=== PATIENT | male | born 1955 | race Caucasian/White ===

== ENCOUNTER 2020-04-20 19:05 | Observation (INO) | payer OTHER, SELFPAY ==
--- OUTSIDE RECORDS SUMMARY | 2020-04-20 19:08 | XMS REPORT | Clinical Summary ---
:1955 Author Organization [facility] Address [address] [place] [address] Care Team Providers Name Role Phone Deandre Phelan DO Primary Care Provider Unavailable Allergies Active Allergy Reactions Severity Noted Date Comments Allopurinol Analogues Anaphylaxis High 02/06/2015 Morphine Other (See Comments) 02/06/2015 Brain f eels on fire, out of it Medications Medication Sig Dispensed Refills Start End Date Status Date insulin aspart Inject 0 Activ e protamine-insulin subcutaneously 2 aspart (NOVOLOG (two) times daily MIX 70/30) 100 with breakfast and unit/mL (70-30) dinner 30u in AM Soln injection with breakfast and 25u in evening with dinner . acetaminophen Take 500 mg by 0 10/31/20 D iscontinued (TYLENOL) 500 MG mouth every 6 (six) 19 tablet hours as needed for Pain. predniSONE Take 4 tablets (80 80 tablet 0 11/21/19 (DELTASONE) 20 MG mg total) by mouth 9 20 tablet daily for 20 days Taper per your lead caster helper. Active Problems Problem Noted Date Idiopathic thrombocytopenic purpura (ITP) 10/31/2019 Acute idiopathic gout of right elbow 06/04/2016 Gout 06/04/2016 Cellulitis of elbow 06/03/2016 Chronic ITP (idiopathic thrombocytopenia) 06/03/2016 CKD (chronic kidney disease) stage 3, GFR 30-59 ml/min 06/03/2016 Encounters Date Type Specialty Care Team Description 10/31/2019 - Emergency Oncology Mik Mckoy MD Idiopathic thrombocytopenic purpura (ITP ) (HCC) (Primary Dx); 11/01/2019 Baldemar, CKD (chronic kidney disease) stage 3, GFR 30-59 ml/min ([facility]); MD Felix Hypertension, unspecified type Brandon Toro MD after 04/20/2019 Social History Tobacco Use Types Packs/Day Years Used Date Former Smoker 2 10 Smokeless Tobacco: Former User Q uit: 05/12/2014 Comments: quit 1980 Alcohol Use Drinks/Week oz/Week Comments No Sex Assigned at Date Recorded Not on file Job Start Date Occupation Industry Not on file Not on file Not on file Travel History Travel Start Travel End No recent travel history available. Last Filed Vital Signs Vital Sign Reading Time Taken Blood Pressure 101/67 11/01/2019 8:22 AM RECEIVER Pulse 61 11/01/2019 8:22 AM RECEIVER Temperature 36.3 C (97.3 F) 11/01/2019 5:00 AM RECEIVER Respiratory Rate 18 11/01/2019 8:22 AM RECEIVER Oxygen Saturation 95% 11/01/2019 8:22 AM RECEIVER Inhaled Oxygen Concentration - - Weight 130.3 kg (287 lb 3.2 oz) 10/31/2019 2:5 1 PM RECEIVER Height 182.9 cm (6') 10/31/2019 2:51 PM RECEIVER Body Mass Index 38.95 10/31/2019 2:51 PM RECEIVER Plan of Treatment Not on file Implants Implanted Type Area Medical Claims Manager Device Shelf Model / Identifier Expiration Serial / Date Lot Cement,Bone Simplex Hv Full Dose (Each) - [id number] Cement/Jc Left: Knee Anna 06/15/2015 [id number] / Implanted: Qty: 1 on 02/21/2015 by Cornell Loving MD ler/[employer] / [id number] Cement,Bone Simplex Hv Full Dose (Each) - [id number] Cement/Jc Right: Knee Anna 05/15/2017 [id number] / Implanted: Qty: 2 on 10/18/2015 by Cornell Loving MD ler/[employer] / [id number] Fem Comp,Triathlon Cr Cemented #6 Left - [id number] Joints Left: Karen roblero Anna 09/15/2019 [id number] / Implanted: Qty: 1 on 02/21/2015 by Cornell Loving MD Orthopaedics / [id number] Triathlon Tritanium Asymmetric Patella Joints Left: ANNA:STR YKER 07/15/2019 5552-[id number] / Implanted: Qty: 1 on 02/21/2015 by Cornell Loving MD [employer] / [id number] Triathlon Tritanium Tibial Component Joints Left: Knee Anna 04/15/2019 [id number]-[id number] / Implanted: Qty: 1 on 02/21/2015 by Cornell Loving MD Orthopaedics / [id number] Tibial Insert,Triathlon Cr X3 #6 9mm - [id number] Joints Left: Kne e Anna 12/16/2019 [id number] / Implanted: Qty: 1 on 02/21/2015 by Cornell Loving MD Orthopaedics / [id number] Fem Comp,Triathlon Cr Cemented #6 Right - [id number] Joints Right: Knee Anna 05/16/2020 [id number] / Implanted: Qty: 1 on 10/18/2015 by Cornell Loving MD Orthopaedics / [id number] Tibial Insert,Triathlon Cr X3 #6 9mm - [id number] Joints Right: Kn ee Anna 04/16/2020 [id number]-[id number] / Implanted: Qty: 1 on 10/18/2015 by Cornell Loving MD Orthopaedics / [id number] Tibial Component Right: Knee Anna 04/16/2020 [id number] / Implanted: Qty: 1 on 10/18/2015 by Cornell Loving MD Orthopaedics / [id number] Asymmetric Patella Right: Knee Sullivan 0 5552-[id number] / Implanted: Qty: 1 on 10/18/2015 by Cornell Loving MD Orthopaedics / [id number] Procedures Procedure Name Priority Date/Time Associated Comments Diagnosis TRANSFUSION SERVICE 11/01/2019 6:01 REPORT - SCAN PM RECEIVER POCT-GLUCOSE METER Routine 11/01/2019 10:04 Resul ts for this AM RECEIVER procedure are i n the results section. CBC W/PLT COUNT & Routine 11/01/2019 5:15 Result s for this AUTO DIFFERENTIAL AM RECEIVER procedure are in the results section. BASIC METABOLIC PANEL Routine 11/01/2019 5:15 Re sults for this (7) AM RECEIVER procedure are i n the results section. CBC W/PLT COUNT & Routine 11/01/2019 5:15 Result s for this AUTO DIFFERENTIAL AM RECEIVER procedure are in the results section. POCT-GLUCOSE METER Routine 10/31/2019 9:59 Resul ts for this PM RECEIVER procedure are i n the results section. POCT-GLUCOSE METER Routine 10/31/2019 5:02 Resul ts for this PM RECEIVER procedure are i n the results section. TANIA TITER AND PATTERN Routine 10/31/2019 3:47 Re sults for this PM RECEIVER procedure are i n the results section. HEPATITIS PANEL, Routine 10/31/2019 3:47 Results for this ACUTE PM RECEIVER procedure are i n the results section. HIV-1 ANTIGEN WITH Routine 10/31/2019 3:47 Resul ts for this HIV-1/2 ANTIBODY PM RECEIVER procedure a re in the results section. ANTI-NUCLEAR ANTIBODY Routine 10/31/2019 3:47 Re sults for this (TANIA) PM RECEIVER procedure are i n the results section. VITAMIN B12 AND Routine 10/31/2019 3:47 Results for this FOLATE PM RECEIVER procedure are i n the results section. CBC W/PLT COUNT & STAT 10/31/2019 12:21 Result s for this AUTO DIFFERENTIAL PM RECEIVER procedure are in the results section. TYPE AND SCREEN, STAT 10/31/2019 12:21 Results for this AUTOMATED PM RECEIVER procedure are i n the results section. PT/APTT STAT 10/31/2019 12:21 Results for this PM RECEIVER procedure are i n the results section. BASIC METABOLIC PANEL STAT 10/31/2019 12:21 Re sults for this (7) PM RECEIVER procedure are i n the results section. HEPATIC FUNCTION STAT 10/31/2019 12:21 Results for this PANEL PM RECEIVER procedure are i n the results section. CBC W/PLT COUNT & STAT 10/31/2019 12:21 Result s for this AUTO DIFFERENTIAL PM RECEIVER procedure are in the results section. after 04/20/2019 Results TRANSFUSION SERVICE REPORT - SCAN (11/01/2019 6:01 PM RECEIVER) Narrative Performed At This result has an attachment that is no t available. POC-Glucose meter (11/01/2019 10:04 AM RECEIVER)Only the most recent of3 results within the time period is included. POC-Glucose Meter 192 (H)Comment: : TESTED 70 - 110 mg/dL [facility] Joey CORONAJhony [facility] [address] [facility], [id number]: Care Mgr/Equipment Scheduler ID = [id number] for EDGAR SCHRADER Specimen Blood Performing Organization Address City/State/Zipcode Phone Number [facility] [address] [place], [place] [phone] CENTER CBC with platelet count + automated diff (11/01/2019 5:15 AM RECEIVER)Only the most recent of2 resultswithin the time period is included. WBC 9.4 3.5 - 10.5 K/L [facility] RBC 5.05 4.63 - 6.08 M/L [facility] Hemoglobin 13.6 (L) 13.7 - 17.5 GM/DL [facility] Hematocrit 42.8 40.1 - 51.0 % [facility] MCV 84.8 79.0 - 92.[address] [facility] MCH 26.9 25.7 - 32.[address] [facility] MCHC 31.8 (L) 32.3 - 36.5 GM/DL [facility] RDW 15.4 (H) 11.6 - 14.4 % [facility] Platelets 51 (L)Comment: 150 - 450 K/CU MM [facility] Discordant PLT result [facility] compared to previous result; clinical correlation required. MPV 12.4 9.4 - 12.[address] [facility] nRBC 0 0 - 0 /[address] [facility] % Neutros 76 % [facility] % Lymphs 21 % [facility] % Monos 2 % [facility] % Eos 0 % [facility] % Baso 0 % [facility] # Neutros 7.18 (H) 1.78 - 5.38 K/L [facility] # Lymphs 1.93 1.32 - 3.57 K/L [facility] # Monos 0.16 (L) 0.30 - 0.82 K/L [facility] # Eos 0.00 (L) 0.04 - 0.54 K/L [facility] # Baso 0.02 0.01 - 0.08 K/L [facility] Immature 1 0 - 1 % [facility] Granulocytes-Relative [facility] Specimen Blood Performing Organization Address City/State/Zipcode Phone Number [facility] [address] [place] [address] CENTER Basic Metabolic Panel (11/01/2019 5:15 AM RECEIVER)Only the most recent of2 results within the time period is included. Sodium 135 (L) 136 - 145 meq/L [facility] Potassium 4.4 3.5 - 5.1 meq/L [facility] Chloride 106 98 - 107 meq/L [facility] CO2 21 (L) 22 - 29 meq/L [facility] BUN 33 (H) 7 - 21 mg/dL [facility] Creatinine 1.66 (H) 0.57 - 1.25 mg/dL [facility] Glucose 164 (H) 70 - 105 mg/dL [facility] Calcium 8.8 8.4 - 10.2 mg/dL [facility] EGFR 42Comment: ESTIMATED GFR IS mL/min/1.73 sq m [facility] NOT ACCURATE CREATININE [facility] CLEARANCE IN PREDICTING GLOMERULAR FILTRATION RATE. ESTIMATED GFR IS NOT APPLICABLE FOR DIALYSIS PATIENTS. Specimen Blood Performing Organization Address City/[facility]/Zipcode Phone Number [address] [address] [place] Vitamin B12 and Folate (10/31/2019 3:47 PM RECEIVER) Vitamin B12 573 213 - 816 pg/mL [facility] Folate 15.3 >=7.0 ng/mL [facility] Specimen Blood Performing Organization Address City/[facility]/Zipcode Phone Number [address] [address] [place] HIV-1 Antigen with HIV-1/2 Antibody (10/31/2019 3:47 PM RECEIVER) HIV-1 Antigen with HIV 1&2 Nonreactive Nonreactive [facility] Antibody [facility] Specimen Blood Performing Organization Address [facility] Cent[facility] Phone Number [address] [address] [place] TANIA Titer & Pattern (10/31/2019 3:47 PM RECEIVER) TANIA Titer >=1:2560 [facility] TANIA Pattern Nucleolar [facility] Specimen Blood Performing Organization Address [facility] Cent[facility] Phone Number [address] [address] [place] Hepatitis panel, acute (10/31/2019 3:47 PM RECEIVER) Hep A IgM Nonreactive Nonreactive [facility] Hep B C IgM Nonreactive Nonreactive [facility] Hepatitis C Ab Nonreactive Nonreactive [facility] HBsAg Screen Nonreactive Nonreactive [facility] Specimen Blood Performing Organization Address City/[facility]/Zipcode Phone Number [address] [phone] CENTER Anti-Nuclear Antibody (TANIA) (10/31/2019 3:47 PM RECEIVER) TANIA Positive (A) Negative [facility] Specimen Blood Narrative Performed At Test performed by IFA method. [facility] Performing Organization Address City/[facility] Centercode Phone Number [address] [address] CENTER Type and screen, automated ([facility] and [facility] only) (10/31/2019 12:21 PM RECEIVER) ABO/RH AUTOMATED (BEAKER) O POSITIVE [facility] [place] Ab Scrn NEGATIVE [facility] Specimen Blood Performing Organization Address [facility] Phone Number [address] [address] PT/aPTT (10/31/2019 12:21 PM RECEIVER) Protime 13.0 11.9 - 14.2 seconds [facility] INR 1.0 <=5.9 [facility] PTT 28.8 22.5 - 36.0 seconds [facility] Specimen Blood Narrative Performed At Effective 04/13/2019: PT Reference Range [facility] Change New: 11.9-14.2Previous: 11.7-14.7 RECOMMENDED COUMADIN/WARFARIN INR THERAPY RANGES STANDARD DOSE: 2.0-3.0Includes: PROPHYLAXIS for venous thrombosis, systemic embolization; TREATMENT for venous thrombosis and/or pulmonary embolus. HIGH RISK: Target INR is 2.5-3.5 for patients wiht mechanical heart valves. Performing Organization Address City/[facility] Centercode Phone Number [address] [address] CENTER Hepatic function panel (10/31/2019 12:21 PM RECEIVER) Protein, Total 7.5 6.0 - 8.3 gm/dL [facility] Albumin 3.9 3.5 - 5.0 g/dL [facility] Total Bilirubin 0.5 0.2 - 1.2 mg/dL [facility] Bilirubin, Direct 0.2 0.1 - 0.5 mg/dL [facility] Alkaline Phosphatase 115 40 - 150 U/L [facility] Jhony [facility] AST 18 5 - 34 U/L [facility] ALT 13 6 - 55 U/L [facility] CJJhony [facility] Specimen Blood Performing Organization Address City/State/Zipcode Phone Number [facility] [address] [place] [address] CENTER after 04/20/2019 Insurance Payer Benefit Plan / Group Subscriber ID Type Phone A ddress MEDICARE MEDICARE A B xxxxxxxxxxx Medicare [facility] MRKT[facility]ACE xxxxxxxxxxxx HMO/POS CHOICE EXCHANGE MCR GENERIC MEDICARE xxxxxxxxxx Medigap SUPPLEMENT/INDIVIDUA SUPPLEMENT L Advance Directives For more information, please contact:[facility] CenterCassie PenaKindred Hospital Seattle - North GateBtaomd[address] [place], [place] [phone] Code Status Date Activated Date Inactivated Comments Full Code 10/31/2019 2:27 PM 11/01/2019 12:54 PM This code status was determined by: Patient Full Code 10/18/2015 6:04 AM 10/18/2015 3:33 PM This code status was determined by: Patient Full Code 06/05/2015 7:21 AM 06/05/2015 6:25 PM This code status was determined by: Patient Full Code 02/21/2015 8:28 AM 02/21/2015 3:23 PM This code status was determined by: Patient
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
[2020-04-20 22:26] LABS: Protime INR 0.94
[2020-04-20 22:29] LABS: Absolute Lymphocytes (CBC) 2.5 K/uL (0.7-4.9); Basophils % 0.8 % (0-1.3); Hematocrit 47.9 % (39.6-49.0); Lymphocytes % 21.4 % (15.3-44.8); RBC Red Blood Cell Count 5.34 M/uL (4.33-5.43)
[2020-04-20 22:32] LABS: Potassium 4.5 mmol/L (3.5-5.1)
[2020-04-20 22:54] LABS: Blood Morphology Comment NOT SEEN (NOT SEEN); Platelet Estimate ADEQ
--- NOTE | 2020-04-21 00:15 | ER ---
Nurse's Notes [facility] Name: Jose Palacios Age: 64 yrs Sex: Male : 1955 Arrival Date: 04/20/2020 Time: 19:08 Bed 15 Private MD: Diagnosis: Acute embolism and thrombosis of unspecified deep veins of left lower extremity Presentation: 04/20 19:12 Chief complaint: Patient states: Left leg pain and swelling for 4 days. Sent for 1 ultrasound to r/o DVT. Coronavirus screen: Proceed with normal triage. Patient denies a cough. Patient denies shortness of breath or difficulty breathing. Patient denies measured and/or subjective temperature greater than 100.4F prior to today's visit. Patient denies travel on a cruise ship or to a country the [facility] currently lists as an affected area. Patient denies contact with known and/or suspected case of COVID-19. Ebola Screen: Patient denies travel to an Ebola-affected area in the 21 days before illness onset. Initial Sepsis Screen: Does the patient meet any 2 criteria? No. Patient's initial sepsis screen is negative. Risk Assessment: Do you want to hurt yourself or someone else? Patient reports no desire to harm self or others. Onset of symptoms was April 16, 2020. 19:12 Method Of Arrival: Ambulatory [facility] 19:12 Acuity: LITO 3 1 04/21 02:38 Initial Sepsis Screen: Does the patient have a suspected source of infection?. vc Historical: - Allergies: 04/20 19:16 Allopurinol; ll1 19:16 Morphine; ll1 19:16 formaldehyde; ll1 - PMHx: 19:16 Gout; ITP; Decreased Kidney Function; exama; ll1 - PSHx: 19:16 Tonsillectomy; Appendectomy; Hernia repair; Knee surgery; ll1 - Immunization history:: Flu vaccine is not up to date. - Social history:: Patient/guardian denies using alcohol, street drugs, tobacco products. Screenin:30 Abuse screen: Denies threats or abuse. Nutritional screening: No deficits noted. jb4 Tuberculosis screening: No symptoms or risk factors identified. Fall Risk None identified. Assessment: 19:30 General: Appears in no apparent distress. comfortable, Behavior is calm, cooperative, jb4 appropriate for age. Pain: Complains of pain in left calf Pain does not radiate. Pain currently is 0 out of 10 on a pain scale. at worst was 8 out of 10 on a pain scale. Quality of pain is described as burning, crampy, Pain began 4 days ago Is intermittent, Alleviated by rest, Aggravated by increased activity. Neuro: Level of Consciousness is awake, alert, obeys commands, Oriented to person, place, time, situation. Cardiovascular: Patient's skin is warm and dry. Respiratory: Airway is patent Respiratory effort is even, unlabored, Respiratory pattern is regular, symmetrical. GI: No signs and/or symptoms were reported involving the gastrointestinal system. : No signs and/or symptoms were reported regarding the genitourinary system. EENT: No signs and/or symptoms were reported regarding the EENT system. Derm: Skin is intact, Skin is pink, warm \T\ dry. Left lower extremity appears to be darker than the right below the knee. Musculoskeletal: Circulation, motion, and sensation intact. Range of motion: intact in all extremities, Swelling present in lateral aspect of left calf, left lateral ankle and lateral aspect of left foot. 20:30 Reassessment: Patient appears in no apparent distress at this time. Patient and/or jb4 family updated on plan of care and expected duration. Pain level reassessed. Patient is alert, oriented x 3, equal unlabored respirations, skin warm/dry/pink. 21:30 Reassessment: Patient appears in no apparent distress at this time. Patient and/or jb4 family updated on plan of care and expected duration. Pain level reassessed. Patient is alert, oriented x 3, equal unlabored respirations, skin warm/dry/pink. 22:30 Reassessment: Patient appears in no apparent distress at this time. Patient and/or jb4 family updated on plan of care and expected duration. Pain level reassessed. Patient is alert, oriented x 3, equal unlabored respirations, skin warm/dry/pink. 22:50 Reassessment: Pt's heart rate increased 156. Provider notified EKG performed. unable to jb4 capture cardiac event. Pt's heart rate returned to 76. 23:30 Reassessment: Patient appears in no apparent distress at this time. Patient and/or jb4 family updated on plan of care and expected duration. Pain level reassessed. Patient is alert, oriented x 3, equal unlabored respirations, skin warm/dry/pink. 04/21 01:05 Reassessment: Patient appears in no apparent distress at this time. Patient and/or jb4 family updated on plan of care and expected duration. Pain level reassessed. Patient is alert, oriented x 3, equal unlabored respirations, skin warm/dry/pink. 02:00 Reassessment: Patient appears in no apparent distress at this time. Patient and/or vc family updated on plan of care and expected duration. Pain level reassessed. 02:41 Reassessment: Report given to SANDOVAL Nava No complaints or needs at this time. vc Vital Signs: 04/20 19:12 BP 142 / 104; Pulse 84; Resp 19; Temp 98.4; Pulse Ox 96% ; Weight 131.54 kg; Height 6 ll1 ft. (182.88 cm); Pain 5/10; 20:15 BP 144 / 94; Pulse 78; Resp 16; Pulse Ox 96% on R/A; jb4 21:30 BP 135 / 73; Pulse 70; Resp 16; Pulse Ox 97% on R/A; jb4 22:40 BP 146 / 73; Pulse 89; Resp 16; Pulse Ox 100% on R/A; jb4 23:30 BP 130 / 83; Pulse 68; Resp 16; Pulse Ox 95% on R/A; jb4 04/21 01:00 BP 143 / 87; Pulse 74; Resp 19; Pulse Ox 97% on R/A; jb4 02:00 BP 136 / 86; Pulse 68; Resp 22; Pulse Ox 98% on R/A; vc 04/20 19:12 Body Mass Index 39.33 (131.54 kg, 182.88 cm) ll1 ED Course: 04/20 19:08 Patient arrived in ED. cl3 19:15 Triage completed. ll1 19:16 Arm band placed on. ll1 19:19 Davian Cobian, RN is Primary Nurse. jb4 19:30 Patient has correct armband on for positive identification. Bed in low position. Call jb4 light in reach. Side rails up X 1. Pulse ox on. NIBP on. 19:55 Marissa Diaz [facility]NP-C [facility]. kb 19:55 Fab Martino MD is Attending Physician. kb 22:14 Inserted saline lock: 20 gauge in right antecubital area, using aseptic technique. oe Blood collected. 22:47 US Extremity Venous Unilateral Ltd In Process Unspecified. EDMS 04/21 00:15 Kim Omer MD is Hospitalizing Provider. kb 02:36 No provider procedures requiring assistance completed. Patient admitted, IV remains in vc place. Administered Medications: 01:00 Drug: Eliquis 10 mg Route: PO; jb4 02:39 Follow up: Response: No adverse reaction vc Outcome: 00:15 Decision to Hospitalize by Provider. kb 02:36 Admitted to Med/surg accompanied by tech, room 204, with chart. vc 02:36 Condition: good 02:36 Instructed on the need for admit. 02:58 Patient left the ED. vc Signatures: Dispatcher [employer] EDKY Marissa Diaz, INSIDE SALES SUPERVISOR-C INSIDE SALES SUPERVISOR-Ckb Davian Cobian, RN RN jb4 Gwyn Cesar Charde cl3 Layla Souza RN RN Lisa Puentes RN RN ll1
--- NOTE | 2020-04-21 00:15 | EDPHYS ---
Physician Documentation [facility] Name: Jose Palacios Age: 64 yrs Sex: Male : 1955 Arrival Date: 04/20/2020 Time: 19:08 Bed 15 Private MD: ED Physician Fab Martino HPI: 04/21 00:15 This 64 yrs old Male presents to ER via Ambulatory with complaints of kb Possible Blood Clot. 00:15 The patient presents with pain, that is acute, swelling, tenderness. The complaints kb affect the left calf. Context: the patient can fully bear weight, the patient is able to ambulate, Problem is a result from a previous injury: No. Onset: The symptoms/episode began/occurred 4 day(s) ago. Modifying factors: The symptoms are alleviated by elevating leg, the symptoms are aggravated by nothing. Associated signs and symptoms: Pertinent positives: calf tenderness, swelling, warmth. Treatment prior to arrival includes: no previous treatment. Severity of symptoms: At their worst the symptoms were moderate, in the emergency department the symptoms are unchanged. The patient has not experienced similar symptoms in the past. The patient has not recently seen a physician. Pt reports leg swelling and pain for 4 days. Went to get his Nplate injection today and the dr told him to come to the ER for an US to rule out DVT.. Historical: - Allergies: 04/20 19:16 Allopurinol; ll1 19:16 Morphine; ll1 19:16 formaldehyde; ll1 - PMHx: 19:16 Gout; ITP; Decreased Kidney Function; exama; ll1 - PSHx: 19:16 Tonsillectomy; Appendectomy; Hernia repair; Knee surgery; ll1 - Immunization history:: Flu vaccine is not up to date. - Social history:: Patient/guardian denies using alcohol, street drugs, tobacco products. ROS: 04/21 00:05 Constitutional: Negative for fever, chills, and weight loss, Cardiovascular: Negative kb for chest pain, palpitations, and edema, Respiratory: Negative for shortness of breath, cough, wheezing, and pleuritic chest pain, Abdomen/GI: Negative for abdominal pain, nausea, vomiting, diarrhea, and constipation, Back: Negative for injury and pain, Skin: Negative for injury, rash, and discoloration, Neuro: Negative for headache, weakness, numbness, tingling, and seizure. MS/extremity: Positive for pain, swelling, tenderness, warmth, of the left calf. Exam: 00:05 Constitutional: This is a well developed, well nourished patient who is awake, alert, kb and in no acute distress. Head/Face: Normocephalic, atraumatic. Chest/axilla: Normal chest wall appearance and motion. Nontender with no deformity. No lesions are appreciated. Cardiovascular: Regular rate and rhythm with a normal S1 and S2. No gallops, murmurs, or rubs. Normal PMI, no JVD. No pulse deficits. Respiratory: Lungs have equal breath sounds bilaterally, clear to auscultation and percussion. No rales, rhonchi or wheezes noted. No increased work of breathing, no retractions or nasal flaring. Abdomen/GI: Soft, non-tender, with normal bowel sounds. No distension or tympany. No guarding or rebound. No evidence of tenderness throughout. Skin: Warm, dry with normal turgor. Normal color with no rashes, no lesions, and no evidence of cellulitis. Neuro: Awake and alert, GCS 15, oriented to person, place, time, and situation. Cranial nerves II-XII grossly intact. Motor strength 5/5 in all extremities. Sensory grossly intact. Cerebellar exam normal. Normal gait. 00:05 Musculoskeletal/extremity: DVT Exam: pain, that is moderate, of the left leg, of the lateral aspect of left calf, swelling, that is moderate, of the left leg, of the left calf, tenderness, of the left calf, erythema, increased warmth. Vital Signs: 04/20 19:12 BP 142 / 104; Pulse 84; Resp 19; Temp 98.4; Pulse Ox 96% ; Weight 131.54 kg; Height 6 ll1 ft. (182.88 cm); Pain 5/10; 20:15 BP 144 / 94; Pulse 78; Resp 16; Pulse Ox 96% on R/A; jb4 21:30 BP 135 / 73; Pulse 70; Resp 16; Pulse Ox 97% on R/A; jb4 22:40 BP 146 / 73; Pulse 89; Resp 16; Pulse Ox 100% on R/A; jb4 23:30 BP 130 / 83; Pulse 68; Resp 16; Pulse Ox 95% on R/A; jb4 04/21 01:00 BP 143 / 87; Pulse 74; Resp 19; Pulse Ox 97% on R/A; jb4 02:00 BP 136 / 86; Pulse 68; Resp 22; Pulse Ox 98% on R/A; vc 04/20 19:12 Body Mass Index 39.33 (131.54 kg, 182.88 cm) ll1 MDM: 04/20 19:55 Patient medically screened. kb 04/21 00:14 Data reviewed: vital signs, nurses notes. Data interpreted: Pulse oximetry: on room air kb is 95 %. Interpretation: normal. Counseling: I had a detailed discussion with the patient and/or guardian regarding: the historical points, exam findings, and any diagnostic results supporting the discharge/admit diagnosis, lab results, radiology results, the need for further work-up and treatment in the hospital. Physician consultation: Kim Omer MD was contacted at 00:14, regarding admission, to the medical/surgical unit. patient's condition, and will see patient shortly. 04/20 21:52 Order name: CBC with Diff; Complete Time: 22:54 kb 04/20 21:52 Order name: Basic Metabolic Panel; Complete Time: 22:51 kb 04/20 21:52 Order name: Protime (+inr); Complete Time: 22:51 kb 04/20 21:52 Order name: Ptt, Activated; Complete Time: 22:51 kb 04/20 22:24 Order name: Glucose, Ancillary Testing; Complete Time: 22:28 EDAL 04/20 22:53 Order name: Manual Differential; Complete Time: 22:54 EDAL 04/20 19:56 Order name: US Extremity Venous Unilateral Ltd 04/20 21:52 Order name: IV Start; Complete Time: 22:18 kb 04/21 01:55 Order name: CONS Pharmacy Consult EDAL 04/21 01:55 Order name: [facility] EDAL Administered Medications: 01:00 Drug: Eliquis 10 mg Route: PO; jb4 02:39 Follow up: Response: No adverse reaction vc Disposition: 04:04 Co-signature as Attending Physician, Fab Martino MD. pkl Disposition: 04/21/20 00:15 Hospitalization ordered by Kim Omer for Observation. Preliminary diagnosis is Acute embolism and thrombosis of unspecified deep veins of left lower extremity. - Bed requested for Telemetry/MedSurg (observation). - Status is Observation. vc - Condition is Stable. - Problem is new. - Symptoms are unchanged. Signatures: Dispatcher [employer] EDMarissa Nichols FNP-C FNP-Louise Diallo RN RN Fab Hays MD MD pkl Davian Cobian RN RN jb4 Layla Souza RN RN vc Lewis, Lynsay, RN RN ll1 Corrections: (The following items were deleted from the chart) 01:57 00:15 Hospitalization Ordered by Kim Omer MD for Observation. Preliminary mw diagnosis is Acute embolism and thrombosis of unspecified deep veins of left lower extremity. Bed requested for Telemetry/MedSurg (observation). Status is Observation. Condition is Stable. Problem is new. Symptoms are unchanged. kb 02:58 01:57 04/21/2020 00:15 Hospitalization Ordered by Kim Omer MD for Observation. vc Preliminary diagnosis is Acute embolism and thrombosis of unspecified deep veins of left lower extremity. Bed requested for Telemetry/MedSurg (observation). Status is Observation. Condition is Stable. Problem is new. Symptoms are unchanged. mw
[2020-04-21] MEDS ORDERED: APIXABAN 5 MG TABLET ONE (00:55)
[2020-04-21] MEDS ORDERED: ONDANSETRON 4 MG/2 ML VIAL IV PRN (01:52)
[2020-04-21] MEDS ORDERED: HYDROCODONE/APAP 10/325 TAB PO PRN (01:57)
[2020-04-21] MEDS: NA CHLORIDE 0.9% 1,000 ML IV SCH ×4 (02:00→20:58)
[2020-04-21 03:07] VITALS: BMI 39.2
[2020-04-21 03:28] VITALS: O2SAT 97
[2020-04-21] MEDS ORDERED: HYDROCORTISONE SUC 100 MG INJ IV SCH ×2 (04:00→10:00)
--- NOTE | 2020-04-21 05:34 | P.HP ---
Certification for Inpatient Patient admitted to: Observation With expected LOS: <2 Midnights Patient will require the following post-hospital care: None Practitioner: I am a practitioner with admitting privileges, knowledge of patient current condition, hospital course, and medical plan of care. Services: Services provided to patient in accordance with Admission requirements found in Title 42 Section 412.3 of the Code of Federal Regulations Patient History Date of Service: 04/21/20 Reason for admission: Left calf tenderness History of Present Illness: Patient is a 64-year-old gentleman who came to the hospital with pain in his left calf. Patient was going to see his travel specialist and received N-Plate for his ITP. Patient most likely developed a DVT as a side effect from the medication. Will consult hematology and discuss the case with them. Will also discuss the long-term use of anti coagulation going forward. At this time patient is doing well with no new complaints. Pain is well controlled. Possible DC home later today pending their evaluation. Allergies allopurinol Allergy (Verified 04/21/20 03:08) tongue swelling formaldehyde Allergy (Verified 04/21/20 03:08) Rash morphine Allergy (Verified 04/21/20 03:08) unknown Home Medications: Insulin Aspart Prot/Insuln Asp [Novolog Mix 70-30 Flexpen] 25 unit SQ DAILY AT SUPPER 04/21/20 Insulin Aspart Prot/Insuln Asp [Novolog Mix 70-30 Flexpen] 30 unit PO BREAKFAST 04/21/20 predniSONE [Prednisone*] 20 mg PO DAILY 04/21/20 - Past Medical/Surgical History Has patient received pneumonia vaccine in the past: No Diabetic: Yes -: gout -: ITP -: decreased kidney function -: eczema -: tonsillectomy -: AP -: hernia repair -: knee sx bilateral - Family History Mother Medical History: Diabetes Father Medical History: Other (see notes) Notes: gout - Social History Smoking Status: Never smoker Alcohol use: No CD- Drugs: No Place of Residence: Home Review of Systems 10-point ROS is otherwise unremarkable Physical Examination - Vital Signs Temperature: 97.5 F Blood Pressure: 158/81 Pulse: 71 Respirations: 18 Pulse Ox (%): 91 - Physical Exam General: Alert, In no apparent distress, Oriented x3 HEENT: Atraumatic, PERRLA, Mucous membr. moist/pink, EOMI, Sclerae nonicteric Neck: Supple, 2+ carotid pulse no bruit, No LAD, Without JVD or thyroid abnormality Respiratory: Clear to auscultation bilaterally, Normal air movement Cardiovascular: Regular rate/rhythm, Normal S1 S2, No murmurs Gastrointestinal: Normal bowel sounds, Soft and benign, Non-distended, No tenderness Musculoskeletal: No clubbing, No swelling, No tenderness Integumentary: No rashes, Tenderness/swelling, Erythema, Warmth Neurological: Normal gait, Normal speech, Normal strength at 5/5 x4 extr, Normal tone, Sensation intact, Cranial nerves 3-12 intact Lymphatics: No axilla or inguinal lymphadenopathy - Studies Laboratory Data (last 24 hrs) 04/20/20 22:07: PT 11.1, INR 0.94, APTT 28.0 04/20/20 22:07: Sodium 143, Potassium 4.5, BUN 26 H, Creatinine 1.94 H, Glucose 179 H 04/20/20 22:07: WBC 11.7 H, Hgb 15.4, Hct 47.9, Plt Count 201 Assessment & Plan - Problems (Diagnosis) (1) Acute deep vein thrombosis of left lower extremity Current Visit: Yes Status: Acute (2) Chronic ITP (idiopathic thrombocytopenia) Current Visit: Yes Status: Acute (3) Encounter for monitoring romiplostim therapy Current Visit: Yes Status: Acute (4) Chronic kidney disease, stage 3 Current Visit: Yes Status: Acute - Plan PLAN: 1. Continue with anticoagulation 2. IV hydration 3. Pain control 4. Hematology consultation 5. OOB and ambulate 6. Monitor platelet count - Advance Directives Does patient have a Living Will: No Does patient have a Durable POA for Healthcare: No - Code Status/Comfort Care Code Status Assessed: Yes Code Status: Full Code Critical Care: No Time Spent Managing PTS Care (In Minutes): 45
[2020-04-21] MEDS: HYDROCORTISONE SUC 100 MG INJ IV SCH ×2 (05:46→12:02)
[2020-04-21] MEDS ORDERED: D50W 25 GM/50 ML SYRINGE/VIAL IV PRN (08:37)
[2020-04-21] MEDS ORDERED: GLUCAGON 1 MG/VIAL IM PRN (08:37)
[2020-04-21] MEDS: INSULIN -REGULAR HUMAN 50 UNIT/0.5 ML ML SQ SCH ×3 (11:30→20:59)
[2020-04-21 11:39] LABS: Absolute Lymphocytes (CBC) 2.1 K/uL (0.7-4.9); Basophils % 0.6 % (0-1.3); Hematocrit 47.5 % (39.6-49.0); Lymphocytes % 20.1 % (15.3-44.8); MPV 8.9 fL (7.6-11.3); RBC Red Blood Cell Count 5.29 M/uL (4.33-5.43)
[2020-04-21 11:45] LABS: Albumin 2.9 g/dL (3.4-5.0); Bilirubin Total 0.7 mg/dL (0.2-1.0); Magnesium 2.4 mg/dL (1.8-2.4); Phosphorus 2.8 mg/dL (2.5-4.9); Potassium 4.7 mmol/L (3.5-5.1); Protein, Total 6.5 g/dL (6.4-8.2)
[2020-04-21] MEDS: ACETAMINOPHEN 500 MG TAB PO PRN (12:02)
[2020-04-21 12:34] LABS: Blood Morphology Comment NOT SEEN (NOT SEEN); Platelet Estimate ADEQ; Urine White Blood Cell Casts OK
--- NOTE | 2020-04-21 20:32 | RAD REPORT ---
EXAM DESCRIPTION: US - Extremity Venous Uni Ltd - 04/21/2020 10:00 am CLINICAL HISTORY: 64 years Male Pain;Swelling COMPARISON: None TECHNIQUE: Real-time and Doppler sonography of the deep venous system of the left lower extremity wa s performed. FINDINGS: Echogenic thrombus is seen within the proximal superficial femoral vein extending to the p opliteal vein. Partial compressibility noted. Decreased or no flow present. No popliteal cyst. IMPRESSION: Findings positive for deep venous thrombosis involving the left lower extremity. There is involvement of the left superficial femoral vein proximally extending to the popliteal vein. Electronically signed by: Yahaira Dasilva MD 04/20/2020 11:07 PM CDT Due to temporary technical issues with the PACS/Fluency reporting system, reports are being signed by the in house radiologist without review as a courtesy to ensure prompt reporting. The interpreting r adiologist is fully responsible for the content of the report.
[2020-04-22] MEDS: ACETAMINOPHEN 500 MG TAB PO PRN (07:27)
[2020-04-22] MEDS: INSULIN -REGULAR HUMAN 50 UNIT/0.5 ML ML SQ SCH ×2 (07:30→11:19)
[2020-04-22] MEDS: NA CHLORIDE 0.9% 1,000 ML IV SCH (08:00)
[2020-04-22] MEDS ORDERED: predniSONE 20 MG TAB PO SCH (11:00)
[2020-04-22 11:31] LABS: Absolute Lymphocytes (CBC) 2.5 K/uL (0.7-4.9); Hematocrit 44.9 % (39.6-49.0); Lymphocytes % 26.2 % (15.3-44.8); MPV 8.7 fL (7.6-11.3)
[2020-04-22 11:40] LABS: Magnesium 2.1 mg/dL (1.8-2.4); Phosphorus 2.5 mg/dL (2.5-4.9); Potassium 4.2 mmol/L (3.5-5.1)
[2020-04-22 12:35] VITALS: BP 154/82; TEMP 97.5
[2020-04-22] MEDS ORDERED: INSULN ASP SQ SCH (17:00)
[2020-04-22] MEDS ORDERED: INSULIN 70/30 100 UNITS/ML SQ SCH (17:00)
[2020-04-22] MEDS ORDERED: INSULIN ASPART PROT SQ SCH (17:00)
[2020-04-23] MEDS ORDERED: INSULN ASP PO SCH (08:00)
[2020-04-23] MEDS ORDERED: INSULIN 70/30 100 UNITS/ML SQ SCH (08:00)
[2020-04-23] MEDS ORDERED: INSULIN ASPART PROT PO SCH (08:00)
[2020-04-23] MEDS ORDERED: predniSONE 20 MG TAB PO SCH (09:00)
--- NOTE | 2020-04-24 12:38 | P.DS ---
Discharge Date: 04/22/20 Disposition: ROUTINE DISCHARGE Discharge Condition: GOOD Reason for Admission: Left calf tenderness Consultations: Oncology - Problems (1) Acute deep vein thrombosis of left lower extremity Status: Acute (2) Chronic ITP (idiopathic thrombocytopenia) Status: Acute (3) Encounter for monitoring romiplostim therapy Status: Acute (4) Chronic kidney disease, stage 3 Status: Acute Brief History of Present Illness: Patient is a 64-year-old gentleman who came to the hospital with pain in his left calf. Patient was going to see his toll line inspector and received N-Plate for his ITP. Patient most likely developed a DVT as a side effect from the medication. Will consult hematology and discuss the case with them. Will also discuss the long-term use of anti coagulation going forward. At this time patient is doing well with no new complaints. Pain is well controlled. Possible DC home later today pending their evaluation. Hospital Course: Spoke with oncology and they recommended discharge with [facility]. At this time patient is stable for discharge home with outpatient follow up. Patient will need to follow with his oncologist in 1-2 weeks. Vital Signs/Physical Exam: Temp Pulse Resp BP Pulse Ox 97.5 F 51 20 154/82 H 94 04/22/20 12:00 04/22/20 12:00 04/22/20 12:00 04/22/20 12:00 04/22/20 12:00 General: Alert, In no apparent distress, Oriented x3 Laboratory Data at Discharge: WBC 9.6 K/uL (4.3-10.9) 04/22/20 11:20 Hgb 14.8 g/dL (13.6-17.9) 04/22/20 11:20 Hct 44.9 % (39.6-49.0) 04/22/20 11:20 Plt Count 136 K/uL (152-406) L D 04/22/20 11:20 PT 11.1 SECONDS (9.5-12.5) 04/20/20 22:07 INR 0.94 04/20/20 22:07 APTT 28.0 SECONDS (24.3-36.9) 04/20/20 22:07 Sodium 141 mmol/L (136-145) 04/22/20 11:20 Potassium 4.2 mmol/L (3.5-5.1) 04/22/20 11:20 BUN 17 mg/dL (7-18) 04/22/20 11:20 Creatinine 1.61 mg/dL (0.55-1.3) H 04/22/20 11:20 Glucose 130 mg/dL (74-106) H 04/22/20 11:20 Phosphorus 2.5 mg/dL (2.5-4.9) 04/22/20 11:20 Magnesium 2.1 mg/dL (1.8-2.4) 04/22/20 11:20 Total Bilirubin 0.7 mg/dL (0.2-1.0) 04/21/20 11:14 AST 18 U/L (15-37) 04/21/20 11:14 ALT 22 U/L (12-78) 04/21/20 11:14 Alkaline Phosphatase 77 U/L (45-117) 04/21/20 11:14 Home Medications: Insulin Aspart Prot/Insuln Asp [Novolog Mix 70-30 Flexpen] 25 unit SQ DAILY AT SUPPER 04/21/20 Insulin Aspart Prot/Insuln Asp [Novolog Mix 70-30 Flexpen] 30 unit PO BREAKFAST 04/21/20 predniSONE [Prednisone*] 20 mg PO DAILY 04/21/20 Apixaban [Eliquis] 5 mg PO BID #60 tab.ds.pk 04/22/20 Pantoprazole [Protonix Tab] 40 mg PO DAILY #30 tab 04/22/20 Tramadol HCl [Ultram] 50 mg PO Q12H PRN #30 tablet 04/22/20 New Medications: Apixaban [Eliquis] 5 mg PO BID #60 tab.ds.pk Pantoprazole [Protonix Tab] 40 mg PO DAILY #30 tab Tramadol HCl [Ultram] 50 mg PO Q12H PRN #30 tablet PRN Reason: Pain Scale 2-4 (Mild) Patient Discharge Instructions: OK TO DC IV AND DC HOME. FOLLOW-UP WITH PRIMARY CARE PROVIDER IN 1-2 WEEKS. FOLLOW-UP WITH Hematology, Dr. Churchill, or your toll line inspector IN 1 WEEKS. RETURN TO THE ER IF symptoms worsen. Please call in tramadol at patient's local pharmacy. CALL DR. SMITH AT [phone] IF ANY QUESTIONS REGARDING HOSPITAL STAY. PLEASE CALL THE FLOOR AT [phone] IF ANY MEDICATION OR NURSING QUESTIONS. Diet: Regular Activity: Fall precautions Followup: Emily Vickers MD [ACTIVE - CAN ADMIT] - (follow up in one week) Amor Coelho MD [Primary Care Provider] - Time spent managing pt's care (in minutes): 20
== END 2020-04-22 14:30 | disposition home or self-care (01) ==
LOC: ER 19:05 → 2ND 04-21 02:44
PROVIDERS: ADMIT Hospitalist; ATTEND Hospitalist
DX: I82.412 Acute embolism and thrombosis of left femoral vein (principal); D69.3 Immune thrombocytopenic purpura; E11.22 Type 2 diabetes mellitus with diabetic chronic kidney disease; Z04.89 Encounter for examination and observation for other specified reasons; N18.3 Chronic kidney disease, stage 3 (moderate); M10.9 Gout, unspecified; Z79.4 Long term (current) use of insulin; Z79.52 Long term (current) use of systemic steroids; Z79.899 Other long term (current) drug therapy; Z11.59 Encounter for screening for other viral diseases
CPT/HCPCS: 36415; 80048; 80053; 82947; 83735; 84100; 85025; 85610; 85730; 93005; 93971; 99285; G0378; J1650; J1720; J2405; J7030; J7512; U0002